=== PATIENT | female | born 1955 | race Caucasian/White ===

== ENCOUNTER 2023-01-16 05:44 | Inpatient (IN) | payer MEDICARE, OTHER ==
[2023-01-15 14:46] VITALS: BMI 28.3
[2023-01-16] MEDS ORDERED: Dexmedetomidine 200 MCG/2 ML VIAL ONE (06:08)
[2023-01-16] MEDS ORDERED: Albumin 5% 500 ML ONE (06:08)
[2023-01-16] MEDS ORDERED: SUGAMMADEX SODIUM 200 MG/2 ML VIAL ONE (06:08)
[2023-01-16] MEDS ORDERED: Ketamine 50 MG/ML (10ML VIAL) ONE (06:08)
[2023-01-16] MEDS ORDERED: Fentanyl 250 MCG/5 ML VIAL ONE (06:08)
[2023-01-16] MEDS ORDERED: Thrombin 5000 UNITS/5 ML VIAL ONE ×2 (06:11→10:19)
[2023-01-16] MEDS ORDERED: Bupivacaine PF 0.5% 30 ML VIAL ONE (06:11)
[2023-01-16] MEDS ORDERED: Vancomycin 1 GM VIAL ONE (06:11)
[2023-01-16] MEDS ORDERED: EPINEPHrine 1 MG/ML AMP ONE (06:11)
[2023-01-16] MEDS ORDERED: CEFAZOLIN 2 GM VIAL ONE (06:49)
[2023-01-16] MEDS ORDERED: Sodium Chloride 0.9% 100 ML ONE (06:49)
[2023-01-16] MEDS ORDERED: Milk Of Magnesia 30 ML UDCUP PO PRN (06:54)
[2023-01-16] MEDS ORDERED: Ondansetron PF 4 MG/2 ML Vial IVP PRN (06:54)
[2023-01-16] MEDS ORDERED: Prochlorperazine 10 MG/2 ML VIAL IM PRN (06:54)
[2023-01-16] MEDS ORDERED: Acetaminophen/Codeine 30-300mg Tablet PO PRN (06:54)
[2023-01-16] MEDS ORDERED: Mag-Al 1200 mg/1200 mg/30 ML UDCUP PO PRN (06:54)
[2023-01-16] MEDS ORDERED: Acetaminophen 325 MG TAB PO PRN (06:54)
[2023-01-16] MEDS ORDERED: NEOSTIGMINE 3 MG/3 ML SYR 3 MG/3 ML SYRINGE ONE (07:03)
[2023-01-16] MEDS ORDERED: PHENYLEPHRINE-NS 100 MCG/ML 10 ML SYRINGE ONE (07:03)
[2023-01-16] MEDS ORDERED: Dexamethasone 20 MG/5 ML VIAL ONE (07:03)
[2023-01-16] MEDS ORDERED: Rocuronium Bromide 10 MG/ML (10ML VIAL) ONE (07:03)
[2023-01-16] MEDS ORDERED: PROPOFOL 200 MG/20 ML VIAL ONE (07:03)
[2023-01-16] MEDS ORDERED: Ondansetron PF 4 MG/2 ML Vial ONE (07:03)
[2023-01-16] MEDS ORDERED: Lidocaine 1% PF 5 ML VIAL ONE (07:03)
[2023-01-16] MEDS ORDERED: Vecuronium 10 MG VIAL ONE (07:03)
[2023-01-16] MEDS ORDERED: ePHEDrine Sulfate 50 MG/10 ML VIAL ONE (07:03)
[2023-01-16] MEDS ORDERED: Glycopyrrolate 0.2 MG/ML 5 ML SYRINGE ONE (07:03)
[2023-01-16] MEDS ORDERED: Phenylephrine 10 MG/ML VIAL ONE (10:33)
[2023-01-16 13:02] LABS: Hemoglobin 10.6 g/dL (12.0-16.0)
[2023-01-16] MEDS ORDERED: Morphine Sulfate 2 MG/ML SYRINGE SLOW IVP PRN (13:13)
[2023-01-16] MEDS ORDERED: PACU-Morphine 4MG/ML VIAL SLOW IVP PRN (13:13)
[2023-01-16] MEDS ORDERED: HYDROmorphone 2 MG/ML VIAL SLOW IVP PRN (13:13)
[2023-01-16] MEDS ORDERED: Ondansetron HCl/PF 4 MG/2 ML Vial IVP PRN (13:13)
[2023-01-16] MEDS ORDERED: Promethazine HCl 25 MG/ML VIAL IM PRN (13:13)
[2023-01-16] MEDS: Sodium Chloride 0.9% 1,000 ML IV SCH ×2 (16:02→19:12)
[2023-01-16] MEDS: HYDROcodone/Acetaminophen 10/325 mg Tablet PO PRN (16:05)
[2023-01-16] MEDS: Morphine 2 MG/ML VIAL SLOW IVP PRN ×2 (16:08→19:12)
[2023-01-16] MEDS: CEFAZOLIN 2 GM in Sodium Chloride 0.9% 100 ML IVPB SCH ×2 (16:08→23:15)
[2023-01-16] MEDS: Bupropion 100 MG SR TAB PO SCH (16:09)
[2023-01-16] MEDS: tiZANidine HCl 4 MG TAB PO PRN (19:12)
[2023-01-16] MEDS: Gabapentin 300 MG CAP PO SCH (19:39)
[2023-01-16] MEDS: HYDROcodone/Acetaminophen 7.5/325 mg Tablet PO PRN (20:23)
[2023-01-17] MEDS: HYDROcodone/Acetaminophen 7.5/325 mg Tablet PO PRN ×2 (00:21→21:59)
[2023-01-17 05:54] LABS: #Monocytes 1.3 thou/uL (0.11-0.59); #Neutrophils 9.3 thou/uL (1.40-6.50); %Basophils 0.2 % (0.0-1.0); %Eosinophils 0.1 % (0.0-10.0); %Lymphocytes 13.4 % (21.0-51.0); %Monocytes 10.5 % (0.0-10.0); %Neutrophils 75.1 % (42.0-75.0); Hematocrit 26.6 % (36.0-47.0); Hemoglobin 8.6 g/dL (12.0-16.0); Mean Corpuscular HGB CONC 32.3 g/dL (32.0-36.0); Mean Corpuscular Hemoglobin 32.5 pg (27.0-31.0); Mean Corpuscular Volume 100.4 fl (78.0-98.0); Mean Platelet Volume 9.7 fL (7.4-10.4); Platelet Count 223 10x3/uL (130-400); RBC Distribution Width 12.9 % (11.5-14.5); Red Blood Cell (RBC) Count 2.65 mill/uL (4.20-5.40); White Blood Cell (WBC) Count 12.4 10x3/uL (4.8-10.8)
[2023-01-17] MEDS: HYDROcodone/Acetaminophen 10/325 mg Tablet PO PRN ×3 (07:57→18:08)
[2023-01-17] MEDS: Aripiprazole 10 MG TAB PO SCH (08:01)
[2023-01-17] MEDS: tiZANidine HCl 4 MG TAB PO PRN ×3 (08:02→23:59)
[2023-01-17] MEDS: Sodium Chloride 0.9% 1,000 ML IV SCH ×2 (09:09→19:56)
[2023-01-17] MEDS: Morphine 2 MG/ML VIAL SLOW IVP PRN ×2 (10:35→13:47)
[2023-01-17] MEDS: Bupropion 100 MG SR TAB PO SCH (10:36)
[2023-01-17] MEDS: Gabapentin 300 MG CAP PO SCH (20:04)
[2023-01-18] MEDS: HYDROcodone/Acetaminophen 7.5/325 mg Tablet PO PRN ×2 (02:04→06:32)
[2023-01-18 06:47] LABS: Bilirubin Negative (Negative); Blood, Urine Negative (Negative); Clarity Clear (Clear); Glucose, Urine (Dipstick) Normal (Negative); Ketone, Urine Negative (Negative); Leukocyte Negative Leu/uL (Negative); Nitrite Negative (Negative); Protein, Urine (Dipstick) Negative (Neg-Trace); Specific Gravity, Urine 1.013 (1.002-1.036); Urobilinogen Normal mg/dL (Less than 2)
[2023-01-18 10:16] LABS: #Basophils 0.1 thou/uL (0.0-0.2); #Eosinphils 0.1 thou/uL (0.0-0.7); #Monocytes 1.3 thou/uL (0.11-0.59); #Neutrophils 6.8 thou/uL (1.40-6.50); %Basophils 0.5 % (0.0-1.0); %Lymphocytes 16.5 % (21.0-51.0); %Neutrophils 68.4 % (42.0-75.0); Hematocrit 26.4 % (36.0-47.0); Hemoglobin 8.6 g/dL (12.0-16.0); Mean Corpuscular HGB CONC 32.6 g/dL (32.0-36.0); Mean Corpuscular Hemoglobin 32.1 pg (27.0-31.0); Mean Corpuscular Volume 98.5 fl (78.0-98.0); Platelet Count 171 10x3/uL (130-400); RBC Distribution Width 14.2 % (11.5-14.5); Red Blood Cell (RBC) Count 2.68 mill/uL (4.20-5.40); White Blood Cell (WBC) Count 9.9 10x3/uL (4.8-10.8)
[2023-01-18] MEDS: Aripiprazole 10 MG TAB PO SCH (11:01)
[2023-01-18] MEDS: Sodium Chloride 0.9% 1,000 ML IV SCH (11:02)
[2023-01-18] MEDS: HYDROcodone/Acetaminophen 10/325 mg Tablet PO PRN ×2 (11:02→15:18)
[2023-01-18] MEDS: tiZANidine HCl 4 MG TAB PO PRN (11:02)
[2023-01-18 11:58] VITALS: TEMP 98.3
[2023-01-18 16:05] VITALS: BP 130/66
[2023-01-18] MEDS: Bupropion 100 MG SR TAB PO SCH (17:09)
== END 2023-01-18 17:20 | disposition home or self-care (01) | DRG 454 ==
LOC: SDC 05:44 → SURG A 06:54 → OBSVTOIN 01-18 13:20
PROVIDERS: ADMIT Neurological Surgery; ATTEND Neurological Surgery
PROC: 0SG00AJ Fusion of Lumbar Vertebral Joint with Interbody Fusion Device, Posterior Approach, Anterior Column, Open Approach (ICD-10-PCS; principal; 2023-01-16)
PROC: 0SG0071 Fusion of Lumbar Vertebral Joint with Autologous Tissue Substitute, Posterior Approach, Posterior Column, Open Approach (ICD-10-PCS; 2023-01-16)
PROC: 01NB0ZZ Release Lumbar Nerve, Open Approach (ICD-10-PCS; 2023-01-16)
PROC: 0ST20ZZ Resection of Lumbar Vertebral Disc, Open Approach (ICD-10-PCS; 2023-01-16)
PROC: 5A09357 Assistance with Respiratory Ventilation, Less than 24 Consecutive Hours, Continuous Positive Airway Pressure (ICD-10-PCS; 2023-01-16)
PROC: 01NR0ZZ Release Sacral Nerve, Open Approach (ICD-10-PCS; 2023-01-16)
PROC: 3E0U0GB Introduction of Recombinant Bone Morphogenetic Protein into Joints, Open Approach (ICD-10-PCS; 2023-01-16)
PROC: 30233N1 Transfusion of Nonautologous Red Blood Cells into Peripheral Vein, Percutaneous Approach (ICD-10-PCS; 2023-01-17)
PROC: 30233J1 Transfusion of Nonautologous Serum Albumin into Peripheral Vein, Percutaneous Approach (ICD-10-PCS; 2023-01-17)
PROC: 3E033XZ Introduction of Vasopressor into Peripheral Vein, Percutaneous Approach (ICD-10-PCS; 2023-01-18)
DX: M48.061 Spinal stenosis, lumbar region without neurogenic claudication (principal); G95.29 Other cord compression; R71.0 Precipitous drop in hematocrit; M48.07 Spinal stenosis, lumbosacral region; M54.16 Radiculopathy, lumbar region; M43.16 Spondylolisthesis, lumbar region; F32.A Depression, unspecified; M19.90 Unspecified osteoarthritis, unspecified site; R50.82 Postprocedural fever; Z79.899 Other long term (current) drug therapy; Z82.49 Family history of ischemic heart disease and other diseases of the circulatory system; Z96.612 Presence of left artificial shoulder joint
CPT/HCPCS: 36415; 36430; 71045; 81003; 85014; 85018; 85025; 86850; 86900; 86901; 93970; C1713; C1889; J0171; J2272; J2370; J3010; J3370; J3490; J7050; P9016; P9045; S0020